=== PATIENT | male | born 1995 | race Caucasian/White ===

== ENCOUNTER 2016-10-24 02:14 | Emergency (ER) ==
[2016-10-24 02:26] VITALS: BP 113/80; TEMP 98.8; BMI 28.3
[2016-10-24] MEDS ORDERED: MOTRIN PO STA (02:32)
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
--- NOTE | 2016-10-24 02:54 | CT ---
EXAM: CT scan brain without contrast HISTORY: Trauma COMPARISON: None. FINDINGS: Contiguous axial images obtained from the skull base to the convexities without contrast utilizing 5-mm collimation. Sagittal and coronal reconstructions were imaged and reviewed.. The ve ntricles and CSF spaces are within normal limits. There are no acute intracranial findings. Mucope riosteal thickening is seen within the right maxillary and bilateral frontal sinuses. Extensive opa cification is seen in the bilateral ethmoid sinuses.. The bony calvarium is intact. IMPRESSION: No acute intracranial findings.
--- NOTE | 2016-10-24 03:14 | CT ---
EXAM: CT scan cervical spine HISTORY: Altercation COMPARISON: None. FINDINGS: Contiguous axial images obtained through the cervical spine utilizing 2-mm collimation. Sagittal and coronal reconstructions were imaged and reviewed. There is loss of the normal cervical lordosis suggesting paraspinal muscle spasm. The vertebral bodies are normal in height and alignmen t. Facet joints are intact.. There is no acute fracture or dislocation. IMPRESSION: Loss of the normal cervical lordosis suggesting paraspinal muscle spasm. No acute findings.
--- NOTE | 2016-10-24 03:19 | CT ---
EXAM: CT scan thorax without contrast HISTORY: Altercation COMPARISON: None. FINDINGS: Contiguous axial images obtained through the thorax without contrast utilizing 5-mm colli mation. Sagittal and coronal reconstructions were imaged and reviewed. The thoracic inlet is unrema rkable. The heart is normal in size without pericardial effusion. Ascending aorta is mildly ectati c measuring 3.2 cm. The descending thoracic aorta the same level measures 2.1 cm. The lungs are cl ear bilaterally.. Review of bone windows reveals no evidence of lytic or blastic lesions. IMPRESSION: No acute findings.
--- NOTE | 2016-10-24 03:24 | CT ---
EXAM: CT scan abdomen pelvis without contrast HISTORY: Altercation COMPARISON: None. FINDINGS: Contiguous axial images obtained through the abdomen pelvis without contrast utilizing 3- mm collimation. Sagittal and coronal reconstructions were imaged and reviewed.. The visualized hadley g bases are clear. The gallbladder is contracted. The liver, pancreas, spleen and adrenal glands h ave normal unenhanced CT appearance. The kidneys are morphologically normal. The abdominal aorta i s normal in course and caliber. The bowel and mesentery are unremarkable. There is no free fluid o r inflammatory changes. There is a small umbilical hernia containing only fat.. Bone windows revea ls no evidence of lytic or blastic lesions. IMPRESSION: No acute intra-abdominal findings.
== END 2016-10-24 03:27 | disposition home or self-care (01) ==
LOC: ED 02:14
DX: S00.03XA Contusion of scalp, initial encounter (principal); S93.401A Sprain of unspecified ligament of right ankle, initial encounter; M54.2 Cervicalgia; M54.5 Low back pain; R07.89 Other chest pain; Y04.2XXA Assault by strike against or bumped into by another person, initial encounter; F17.210 Nicotine dependence, cigarettes, uncomplicated; W19.XXXA Unspecified fall, initial encounter
CPT/HCPCS: 99283

== ENCOUNTER 2016-10-30 12:15 | Emergency (ER) ==
[2016-10-30 12:26] VITALS: BP 112/79; TEMP 96.5; BMI 29.1
[2016-10-30] MEDS ORDERED: TYLENOL PO STA (12:50)
[2016-10-30] MEDS ORDERED: DECADRON 4 MG/ML SDV IM STA (12:50)
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
[2016-10-30 13:03] LABS: BASOPHILS # (AUTO) 0.1 K/uL (0-0.2); BASOPHILS % (AUTO) 1.4 % (0.0-3.0); EOSINOPHILS # (AUTO) 0.4 K/ul (0.0-0.7); EOSINOPHILS % (AUTO) 5.2 % (0.0-7.0); HEMATOCRIT 46.1 % (42.0-52.0); HEMOGLOBIN 16.1 g/dl (14.0-18.0); IMMATURE GRANULOCYTE % (AUTO) 0.6 % (0.0-5.0); LYMPHOCYTES # (AUTO) 1.8 K/uL (0.60-3.4); LYMPHOCYTES % (AUTO) 21.9 (10.0-50.0); MEAN CORPUSCULAR HEMOGLOBIN 31.3 pg (27.0-31.0); MEAN CORPUSCULAR HGB CONC 34.9 (31.8-35.4); MEAN CORPUSCULAR VOLUME 89.7 fl (80.0-94.0); MONOCYTES # (AUTO) 0.5 K/uL (0.4-2.0); MONOCYTES % (AUTO) 5.8 (0-10); NEUTROPHILS # (AUTO) 5.3 K/ul (2.0-6.9); NEUTROPHILS % (AUTO) 65.1; PLATELET COUNT 231 10^3/uL (140-440); RED BLOOD COUNT 5.14 10^6/ul (4.70-6.10); WHITE BLOOD COUNT 8.11 K/ul (4.2-10.2)
--- NOTE | 2016-10-30 13:19 | CT ---
EXAM: CT of the chest without contrast History: Short of breath Comparison: Chest radiograph 10/24/2016 Technique: Multiplanar CT images through the thorax were obtained without the administration of IV contrast Findings: Heart size is normal. No pericardial effusion. Great vessels are grossly unremarkable o n this noncontrast study. Minimal residual thymic tissue again noted. No pathologically enlarged t horacic lymph nodes. No consolidation. No pleural fluid and no pneumothorax. No suspicious lung m asses or lung nodules. Within the visualized upper abdomen, no acute findings. No acute osseous abnormalities. Impression: No acute intrathoracic process. No change compared to the prior study.
--- NOTE | 2016-10-30 13:20 | CT ---
EXAM: Noncontrast CT head. HISTORY: Syncope COMPARISON: 10/24/2016 TECHNIQUE: Noncontrast CT head was performed with axial coronal and sagittal reconstructions. Findings: There is preservation of the tay-white differential without evidence of definitive large vessel acu te cortical infarct identified. No acute intracranial hemorrhage is identified. No midline shift is identified. No definitive intracranial mass lesion is identified within technical limitations of no ncontrast CT. The basal cisterns are patent. The ventricles are normal in size and configuration. There is near complete opacification of the frontal sinuses near complete opacification ethmoid air cells with fluid within the partially visualized right maxillary sinus and bilateral maxillary sinu s mucosal thickening present. Mild mucosal thickening is also seen at the sphenoid sinuses. Impression: 1. No acute intracranial hemorrhage or definitive large vessel acute cortical infarct identified. 2. High-density fluid is present within the right maxillary sinus. Differential considerations woul d include hemorrhage within the right maxillary sinus. If there is a history of trauma, would recom mend correlation with a CT maxillofacial bones to exclude an associated maxillofacial bone fracture as the cause for the high-density fluid within the right maxillary sinus. 3. Diffuse paranasal sinus disease.
[2016-10-30 13:28] LABS: ALANINE AMINOTRANSFERASE 15 U/L (12-78); ALBUMIN 4.1 g/dL (3.4-5.0); ALBUMIN/GLOBULIN RATIO 1.64; ALKALINE PHOSPHATASE 39 U/L (50-136); ANION GAP 12.1; ASPARTATE AMINO TRANSFERASE 15 U/L (15-37); BILIRUBIN,TOTAL 0.61 mg/dL (0.00-1.20); BLOOD UREA NITROGEN 12 mg/dL (7-18); BUN/CREATININE RATIO 15.38; CALCIUM 8.8 mg/dL (8.2-10.2); CARBON DIOXIDE 25 mmol/L (21-32); CHLORIDE 107 mmol/L (98-107); CREATINE KINASE 74 U/L; CREATININE 0.78 mg/dL (0.60-1.10); GLUCOSE 89 mg/dL (70-100); POTASSIUM 4.1 mmol/L (3.5-5.1); SODIUM 140 mmol/L (136-145); TOTAL PROTEIN 6.6 g/dL (6.4-8.2)
[2016-10-30 13:28] LABS: COCAIN SCREEN,URINE NEGATIVE (NEGATIVE)
--- NOTE | 2016-10-30 13:59 | CT ---
EXAM: CT maxillofacial region without contrast History: Syncope and head trauma. Comparison: Head CT 10/30/2016, head CT 10/24/2016 Technique: Multiplanar CT images through the maxillofacial region were obtained without the adminis tration of IV contrast Findings: Age indeterminate mildly displaced left nasal bone fracture. Mastoid air cells are clear. Moderate to severe mucosal thickening of the maxillary sinuses, ethmoid air cells and frontal sinus es similar to the previous study. Mild mucosal thickening of the sphenoid sinuses. There is some hi gh density associated with these sinus mucosal thickening. Orbits are intact. Visualized intracran ial contents demonstrate no acute findings. Orbits are intact. Surrounding soft tissues demonstrate no acute findings. Nasal septum is bowed to the right. Bilateral ostiomeatal units are occluded. Impression: 1. Age indeterminate left nasal bone fracture. 2. Moderate to severe paranasal sinusitis. High density material seen within the sinuses could be due to old inspissated secretions, hemorrhage or fungal infection. 3. Occluded bilateral ostiomeatal units.
== END 2016-10-30 14:15 | disposition home or self-care (01) ==
LOC: ED 12:15
DX: J01.41 Acute recurrent pansinusitis (principal); R55 Syncope and collapse; F17.210 Nicotine dependence, cigarettes, uncomplicated
CPT/HCPCS: 36415; 80053; 80306; 82550; 84484; 85025; 85379; 93005; 93010; 96372; 99283

== ENCOUNTER 2017-08-06 15:25 | Emergency (ER) | payer OTHER ==
[2017-08-06 15:28] VITALS: TEMP 97.6; BMI 26.1
--- NOTE | 2017-08-06 15:34 | ED.PDOC ---
General ED Provider: Dr. GABBI WAKEFIELD-ER Chief Complaint: Earache Stated Complaint: my ear hurts--keith had ear infections before Time Seen by Physician: 15:32 Mode of Arrival: Walk-In Information Source: Patient Exam Limitations: No limitations Nursing and Triage Documentation Reviewed and Agree: Yes Reviewed sepsis parameters & appropriate labs ordered?: Yes System Inflammatory Response Syndrome: Not Applicable Sepsis Protocol: For patient's 13 years and over: Temp is 96.8 and below OR 101 and greater Pulse >90 BPM Resp >20/minute Acutely Altered Mental Status Are patient's symptoms suggestive of a new infection, such as: -Pneumonia -Skin, Soft Tissue -Endocarditis -UTI -Bone, Joint Infection -Implantable Device -Acute Abdominal Infection -Wound Infection -Meningitis -Blood Stream Catheter Infection -Unknown EENT Complaint Exam - Ear Complaint/Exam Onset/Duration: 2 days Symptoms Are: Still present Timing: Constant Initial Severity: Mild Current Severity: Mild Character: Reports: Dull pain, Aching pain Aggravating: Reports: None Alleviating: Denies: None Associated Signs and Symptoms: Reports: URI symptoms. Denies: Ear trauma, Ear swelling, Discharge, Fever, Hearing loss, Bleeding, Sore throat, Headache Ear Surgical History: None Vesicles to External Pinna: No Vesicles to Tragus: No TMJ Tenderness: None Mastoid Tenderness: None Tragal Tenderness: None Tympanic Membrane: Erythema, Dullness Differential Diagnoses: Otitis Media Review of Systems - Review Of Systems Constitutional: Reports: No symptoms Eyes: Reports: No symptoms Ears, Nose, Mouth, Throat: Reports: Ear pain Respiratory: Reports: No symptoms Cardiac: Reports: No symptoms GI: Reports: No symptoms : Reports: No symptoms Musculoskeletal: Reports: No symptoms Skin: Reports: No symptoms Neurological: Reports: No symptoms Endocrine: Reports: Intolerance to heat Hematologic/Lymphatic: Reports: No symptoms All Other Systems: Reviewed and Negative Past Medical History - Past Medical History Previously Healthy: Yes Endocrine: Reports: None Cardiovascular: Reports: None Respiratory: Reports: None Hematological: Reports: None Gastrointestinal: Reports: None Genitourinary: Reports: None Neuro/Psych: Reports: None Musculoskeletal: Reports: None Cancer: Reports: None Other Pertinent Past Medical History: EAR AND SINUS PROBLEMS - Surgical History General Surgical History: Reports: Other (PE TUBES CHILD) - Family History Family History: Reports: None - Social History Smoking Status: Current every day smoker, Heavy tobacco smoker Hx Substance Use: No Alcohol Screening: None Lives: With family Physical Exam - Physical Exam Appearance: Well-appearing, No pain distress, Well-nourished Eyes: KETAN, EOMI, Conjunctiva clear ENT: Rhinorrhea Neck: Supple Respiratory: Airway patent, Breath sounds clear, Breath sounds equal, Respirations nonlabored Cardiovascular: RRR, Pulses normal, No rub, No murmur GI/: Soft, Nontender, No masses, Bowel sounds normal, No Organomegaly Musculoskeletal: Normal strength, ROM intact, No edema, No calf tenderness Skin: Warm, Dry, Normal color Neurological: Sensation intact Psychiatric: Affect appropriate, Mood appropriate Critical Care Note - Critical Care Note Total Time (mins): 0 Course - Course Vital Signs: Temp Pulse Resp BP Pulse Ox 08/06/17 15:26 97.6 F 83 16 121/79 98 Departure - Departure Time of Disposition: 15:33 Disposition: HOME SELF-CARE Discharge Problem: Otitis media Qualifiers: Otitis media type: suppurative Chronicity: acute Laterality: right Recurrence: recurrent Spontaneous tympanic membrane rupture: without spontaneous rupture Qualified Code(s): H66.004 - Acute suppurative otitis media without spontaneous rupture of ear drum, recurrent, right ear Instructions: Ear Infection (ED) Condition: Good Pt referred to PMD for follow-up: Yes IPMP verified?: No Additional Instructions: augmentin 875mg bid x 7 days--toradol 10mg qid prn pain #16--call to make folllow up in clinic to see if ent referral is necessary Allergies/Adverse Reactions: Allergies codeine Adverse Reaction (Verified 08/06/17 15:28) Penicillins Adverse Reaction (Verified 08/06/17 15:28) sulfamethoxazole [From Bactrim] Adverse Reaction (Verified 08/06/17 15:28) trimethoprim [From Bactrim] Adverse Reaction (Verified 08/06/17 15:28) Home Medications: Ambulatory Orders 1 [No Reported Medications] 08/06/17 Disposition Discussed With: Family
[2017-08-06 15:36] VITALS: BP 121/79
== END 2017-08-06 15:40 | disposition home or self-care (01) ==
LOC: ED 15:25
DX: H66.004 Acute suppurative otitis media without spontaneous rupture of ear drum, recurrent, right ear (principal); F17.210 Nicotine dependence, cigarettes, uncomplicated
CPT/HCPCS: 99282